=== PATIENT | male | born 1995 | race African-American/Black ===

== ENCOUNTER 2017-11-01 10:55 | Emergency (ER) | payer SELFPAY ==
[2017-11-01] MEDS ORDERED: ASPIRIN 325 MG TABLET PO ONE (11:06)
--- NOTE | 2017-11-01 11:10 | ER Document Report ---
ED Medical Screen (RME) - General Chief Complaint: Headache Stated Complaint: HEADACHE Time Seen by Provider: 11/01/17 11:05 Mode of Arrival: Medic Information source: Patient TRAVEL OUTSIDE OF THE [place] IN LAST 30 DAYS: No - HPI Patient complains to provider of: KEY; CP Onset: This morning - pt with onset of severe KEY this am -- Also states that he has been have L-sided CP for the past 4-5 days. Has not taken ASA today - Related Data Allergies/Adverse Reactions: Sulfa (Sulfonamide Antibiotics) Allergy (Verified 11/01/17 10:58) Physical Exam - Vital signs Vitals: Temp Pulse Resp BP Pulse Ox 98.4 F 73 18 134/94 H 98 11/01/17 11:01 11/01/17 11:01 11/01/17 11:01 11/01/17 11:01 11/01/17 11:01 Course - Vital Signs Vital signs: Temp Pulse Resp BP Pulse Ox 98.4 F 73 18 134/94 H 98 11/01/17 11:01 11/01/17 11:01 11/01/17 11:01 11/01/17 11:01 11/01/17 11:01
--- NOTE | 2017-11-01 11:40 | RADIOLOGY REPORT (SQ) ---
EXAM DESCRIPTION: CHEST PA/LAT COMPLETED DATE/TIME: 11/01/2017 11:32 am REASON FOR STUDY: CP COMPARISON: None. EXAM PARAMETERS: NUMBER OF VIEWS: two views TECHNIQUE: Digital Frontal and Lateral radiographic views of the chest acquired. RADIATION DOSE: NA LIMITATIONS: none FINDINGS: LUNGS AND PLEURA: No opacities, masses or pneumothorax. No pleural effusion. MEDIASTINUM AND HILAR STRUCTURES: No masses or contour abnormalities. HEART AND VASCULAR STRUCTURES: Heart normal size. No evidence for failure. BONES: No acute findings. HARDWARE: None in the chest. OTHER: No other significant finding. IMPRESSION: NO SIGNIFICANT RADIOGRAPHIC FINDING IN THE CHEST. TECHNICAL DOCUMENTATION: JOB ID: [id number] [id number]/20- All Rights Reserved
--- NOTE | 2017-11-01 11:55 | RADIOLOGY REPORT (SQ) ---
EXAM DESCRIPTION: CT HEAD WITHOUT COMPLETED DATE/TIME: 11/01/2017 11:42 am REASON FOR STUDY: CP COMPARISON: None. TECHNIQUE: Axial images acquired through the brain without intravenous contrast. Images reviewed wi th bone, brain and subdural windows. Images stored on PACS. All CT scanners at this facility use dose modulation, iterative reconstruction, and/or weight based d osing when appropriate to reduce radiation dose to as low as reasonably achievable (ALARA). [facility]: Dose Right [facility]: CareDose [facility]: Dose Right [facility]: Teradose 4D [facility]: AccuTherm Systems RADIATION DOSE: mGy. LIMITATIONS: None. FINDINGS: VENTRICLES: Normal size and contour. CEREBRUM: No masses. No hemorrhage. No midline shift. No evidence for acute infarction. Normal gra y/white matter differentiation. No areas of low density in the white matter. CEREBELLUM: No masses. No hemorrhage. No alteration of density. No evidence for acute infarction. EXTRAAXIAL SPACES: No fluid collections. No masses. ORBITS AND GLOBE: No intra- or extraconal masses. Normal contour of globe without masses. CALVARIUM: No fracture. PARANASAL SINUSES: No fluid or mucosal thickening. SOFT TISSUES: No mass or hematoma. OTHER: No other significant finding. IMPRESSION: NORMAL BRAIN CT WITHOUT CONTRAST. EVIDENCE OF ACUTE STROKE: NO. COMMENT: Quality ID # [id number]: Final reports with documentation of one or more dose reduction techniques (e.g., Automated exposure control, adjustment of the mA and/or kV according to patient size, use of iterative reconstruction technique) TECHNICAL DOCUMENTATION: JOB ID: [id number] [employer]- All Rights Reserved
--- NOTE | 2017-11-01 11:56 | ER Document Report ---
ED General - General Chief Complaint: Headache Stated Complaint: HEADACHE Time Seen by Provider: 11/01/17 11:05 Mode of Arrival: Medic Information source: Patient Notes: Patient presents to the emergency department via EMS with complaints of headache for the past 3 days and chest pain for the past 3-4 days. Patient reports last week he was sick with a fever and cough. He became better. He reports headache for the past 3 days that started after his chest pain. Reports the chest pain is constant sharp on the left side. Increased pain with deep breath. Denies recent trauma. Denies working out with weights. He reports when he was sick last week he was coughing. Denies history of cardiac disease reports nephew at 16 of a heart attack. Mother at bedside reports family history of migraines. Patient denies history of migraines. Denies fever vomiting diarrhea. Patient reports she has not taken any over-the- counter medications because he does not want to become addicted. He does admit to smoking marijuana but reports he quit a few weeks ago. He also reports he drinks [employer] drinks occasionally. Reports no recent [id number] cough medicines TRAVEL OUTSIDE OF THE [place] IN LAST 30 DAYS: No - HPI Onset: Other Onset/Duration: Persistent Quality of pain: Sharp Severity: Severe Pain Level: 5 Associated symptoms: Headache Exacerbated by: Denies Relieved by: Denies Similar symptoms previously: No Recently seen / treated by doctor: No - Related Data Allergies/Adverse Reactions: Sulfa (Sulfonamide Antibiotics) Allergy (Verified 11/01/17 12:43) Past Medical History - General Information source: Patient - Social History Smoking Status: Unknown if Ever Smoked Cigarette use (# per day): No Chew tobacco use (# tins/day): No Frequency of alcohol use: Social Drug Abuse: Marijuana Occupation: Restaurant Lives with: Family Family History: Other - Family history of migraines, nephew at 16 from a [place] Patient has suicidal ideation: No Patient has homicidal ideation: No - Medical History Medical History: Other - G6PD Renal/ Medical History: Denies: Hx Peritoneal Dialysis Surgical Hx: Negative Review of Systems - Review of Systems Notes: Review HPI for review of systems., All other systems negative Physical Exam - Vital signs Vitals: Temp Pulse Resp BP Pulse Ox 98.4 F 73 18 134/94 H 98 11/01/17 11:01 11/01/17 11:01 11/01/17 11:01 11/01/17 11:01 11/01/17 11:01 - Notes Notes: PHYSICAL EXAMINATION: GENERAL: Well-appearing and in no acute distress HEAD: Atraumatic, normocephalic. EYES: Pupils equal round extraocular movements intact, sclera anicteric, conjunctiva are normal. ENT: nares patent, oropharynx clear without exudates. Moist mucous membranes. NECK: Normal range of motion, supple without lymphadenopathy LUNGS: CTAB and equal. No wheezes rales or rhonchi. HEART: Regular rate and rhythm without murmurs left sided chest wall ttp ABDOMEN: Soft, no tenderness. No guarding, no rebound EXTREMITIES: Normal range of motion, no pitting edema. No cyanosis. NEUROLOGICAL: Cranial nerves grossly intact. Normal sensory/motor exams. PSYCH: Normal mood, normal affect. SKIN: Warm, Dry, normal turgor, no rashes or lesions noted Course - Re-evaluation Re-evalutation: 11/01/17 13:23 Patient resting quietly no distress. Labs unremarkable UA UA drug screen unremarkable chest x-ray and CT of the head negative. Discussed all labs in results with mom and patient. Instructed on the importance of follow-up with her primary care provider within the next 3 days. Discussed costochondritis - Vital Signs Vital signs: Temp Pulse Resp BP Pulse Ox 98.2 F 73 12 128/69 H 99 11/01/17 13:42 11/01/17 13:42 11/01/17 13:42 11/01/17 13:42 11/01/17 13:42 - Laboratory Result Diagrams: 11/01/17 12:15 11/01/17 12:15 Laboratory results interpreted by me: 11/01/17 12:15 BUN 6 L - Diagnostic Test Radiology reviewed: Image reviewed, Reports reviewed - IMPRESSION: NORMAL BRAIN CT WITHOUT CONTRAST IMPRESSION: NO SIGNIFICANT RADIOGRAPHIC FINDING IN THE CHEST - EKG Interpretation by Mi EKG shows normal: Sinus rhythm Discharge - Discharge Clinical Impression: Chest wall pain, Costochondritis Headache Qualifiers: Headache type: unspecified Headache chronicity pattern: unspecified pattern Intractability: not intractable Qualified Code(s): R51 - Headache Condition: Stable Disposition: HOME, SELF-CARE Instructions: Anti-Inflammatory Medication ([facility]), Aspirin (Cardiac) ([facility]), Chest Wall Pain ([facility]), Costochondritis ([facility]), Headache ([facility]), Ibuprofen (General ) ([facility]) Additional Instructions: *You have been evaluated for headache, chest wall pain, costochondritis, elevated blood pressure reading *Take medication as prescribed *Follow up with a primary care provider within 3 days *Return to ED for worsening condition, changes, needs Monitor your blood pressure. Your blood pressure was elevated today. This may be because you were anxious, in pain or because you need medication. It is important to follow up with your primary care provider for full evaluation. Prescriptions: Ibuprofen [Motrin 800 mg Tablet] 800 mg PO TID #15 tablet Forms: Elevated Blood Pressure
[2017-11-01] MEDS ORDERED: IBUPROFEN 800 MG TABLET PO ONE (12:19)
[2017-11-01 12:36] LABS: ABSOLUTE EOSINOPHILS # (AUTO) 0.1 10^3/uL (0.0-0.6); ABSOLUTE LYMPHOCYTES (AUTO) 1.4 10^3/uL (0.5-4.7); ABSOLUTE MONOCYTES (AUTO) 0.6 10^3/uL (0.1-1.4); ABSOLUTE NEUT (AUTO) 4.3 10^3/uL (1.7-8.2); BASOPHILS % (AUTO) 0.5 % (0-2); EOSINOPHILS % (AUTO) 1.7 % (0-6); HEMATOCRIT 42.3 % (37.9-51.0); HEMOGLOBIN 13.9 g/dL (13.5-17.0); HGB HCT DIFFERENCE -0.6; LYMPHOCYTES % (AUTO) 22.1 % (13-45); MEAN CORPUSCULAR HEMOGLOBIN 29.5 pg (27.0-33.4); MEAN CORPUSCULAR HGB CONC 32.9 g/dL (32.0-36.0); MEAN CORPUSCULAR VOLUME 90 fl (80-97); MONOCYTES % (AUTO) 9.8 % (3-13); RED BLOOD COUNT 4.72 10^6/uL (4.35-5.55); RED CELL DISTRIBUTION WIDTH 13.4 % (11.5-14.0); SEGMENTED NEUTROPHILS % (AUTO) 65.9 % (42-78); WHITE BLOOD COUNT 6.6 10^3/uL (4.0-10.5)
[2017-11-01 12:49] LABS: ALANINE AMINOTRANSFERASE 31 U/L (21-72); ALBUMIN 4.5 g/dL (3.5-5.0); ALKALINE PHOSPHATASE 74 U/L (38-126); ANION GAP 14 (5-19); ASPARTATE AMINO TRANSFERASE 21 U/L (17-59); BILIRUBIN,DIRECT 0.4 mg/dL (0.0-0.4); BILIRUBIN,TOTAL 0.7 mg/dL (0.2-1.3); BLOOD UREA NITROGEN 6 mg/dL (7-20); CARBON DIOXIDE 25 mmol/L (22-30); CHLORIDE 104 mmol/L (98-107); CREATINE KINASE 147 U/L (55-170); CREATININE RESULT 0.75 mg/dL (0.52-1.25); GLUCOSE 92 mg/dL (75-110); POTASSIUM 4.4 mmol/L (3.6-5.0); SODIUM 143.2 mmol/L (137-145); TOTAL PROTEIN 7.2 g/dL (6.3-8.2)
[2017-11-01 12:54] LABS: APPEARANCE,URINE CLEAR; BILIRUBIN,URINE NEGATIVE (NEGATIVE); GLUCOSE, URINE NEGATIVE (NEGATIVE); KETONES,URINE NEGATIVE (NEGATIVE); LEUKOCYTE ESTERASE,URINE NEGATIVE (NEGATIVE); NITRITE,URINE NEGATIVE (NEGATIVE); PROTEIN,URINE NEGATIVE (NEGATIVE); URINE SPECIFIC GRAVITY 1.011; UROBILINOGEN,URINE NEGATIVE mg/dL (<2.0)
[2017-11-01 13:01] LABS: TROPONIN I < 0.012 ng/mL
[2017-11-01 13:08] LABS: URINE BARBITURATES SCREEN NEGATIVE; URINE METHADONE SCREEN NEGATIVE; URINE OPIATES LOW NEGATIVE; URINE PHENCYCLIDINE SCREEN NEGATIVE
[2017-11-01 13:59] VITALS: BP 128/69
--- NOTE | 2017-11-01 23:08 | EKG REPORT ---
SEVERITY:- NORMAL ECG - SINUS RHYTHM : Confirmed by: Eloy Tinajero 01-Nov-2017 23:08:00
== END 2017-11-01 13:43 | disposition home or self-care (01) ==
LOC: ER 10:55
DX: R51 Headache (principal); M94.0 Chondrocostal junction syndrome [Tietze]; R07.89 Other chest pain; Z82.49 Family history of ischemic heart disease and other diseases of the circulatory system; Z82.0 Family history of epilepsy and other diseases of the nervous system; Z88.2 Allergy status to sulfonamides
CPT/HCPCS: 36415; 70450; 71020; 80053; 80307; 81001; 82550; 82553; 84484; 85025; 93005; 93010; 99285